=== PATIENT | female | born 1990 | race Caucasian/White ===

== ENCOUNTER 2017-08-24 17:36 | Emergency (ER) | payer BC, OTHER ==
[2017-08-24 18:19] VITALS: BP 129/88
[2017-08-24] MEDS ORDERED: KETOROLAC TROMETHAMINE INJ/PF 30 MG/1 ML SDV IM ONE (19:42)
--- NOTE | 2017-08-24 19:43 | ER Document Report ---
ED Oral Problem - General Chief Complaint: Sore Throat Stated Complaint: SORE THROAT Time Seen by Provider: 08/24/17 18:59 Mode of Arrival: Ambulatory Information source: Patient TRAVEL OUTSIDE OF THE [place] IN LAST 30 DAYS: No - HPI Patient complains to provider of: Sore throat Onset: Just prior to arrival Notes: Patient arrives with complaints of sore throat, chills, body aches, feeling hot , intermittent headache, ear pain, fatigue started a few hours ago. She denies any significant cough. She complains of mild nausea. She denies any vomiting or diarrhea. No chest pain or shortness of breath. No abdominal pain. No rash. No neck stiffness. No unilateral numbness tingling or weakness. She denies any history of immunosuppression, HIV, diabetes, cancer, , lung disease. Nothing seems to make her symptoms better or worse. She denies any other complaints at this time. - Related Data Allergies/Adverse Reactions: No Known Allergies Allergy (Unverified 08/24/17 17:44) Past Medical History - Social History Smoking Status: Unknown if Ever Smoked Family History: Reviewed & Not Pertinent Review of Systems - Review of Systems -: Yes All other systems reviewed and negative Physical Exam - Vital signs Vitals: Temp Pulse BP Pulse Ox 99.5 F 117 H 129/88 H 99 08/24/17 18:17 08/24/17 18:17 08/24/17 18:17 08/24/17 18:17 - Notes Notes: GENERAL: alert, cooperative, nontoxic, no distress. HEAD: normocephalic, atraumatic EYES: conjunctiva pink without discharge, no external redness or swelling. EARS: no external swelling, no external redness, no mastoid redness, swelling, tenderness. Ear canals are clear without swelling or drainage. TMs pearly lehman , no redness, no bulging, normal landmarks, no perforation. NOSE: atraumatic, no external swelling. clear rhinorrhea noted. MOUTH/THROAT: mucous membranes moist and pink, posterior pharynx without erythema, swelling, exudate. No trismus or drooling. NECK: soft, supple, full range of motion, no meningismus. CHEST: no distress, lungs clear and equal throughout. No wheezing, rales, rhonchi. CARDIAC: regular rate and rhythm, no murmur, normal capillary refill, normal pulses. No peripheral edema noted. BACK: full range of motion, no CVA tenderness. EXTREMITIES: full range of motion of all extremities. No redness, no swelling. NEURO: alert and oriented A&O3, no focal deficits, full range of motion of all extremities. PYSCH: appropriate mood, affect. Patient is cooperative. SKIN: pink, warm, dry, no rash. Course - Re-evaluation Re-evalutation: 08/24/17 21:04 She is nontoxic appearing with stable vitals. The patient developed sore throat fever chills and not feeling well earlier today. She denies any significant cough. Her strep is positive. She will be given a dose of Bicillin in the emergency department will be discharged home. She is instructed to follow-up if not improving the next 3-5 days, sooner for increasing pain, fever, difficulty breathing or swallowing, or for any further concerns. The patient is noted to have elevated blood pressure during today's emergency department visit. The patient was informed of this finding. The patient was instructed that this may be related to pre-hypertension and requires further evaluation with a primary care provider. The patient has no hypertensive symptoms at this time. The patient's emergency department workup and current diagnosis were explained to the patient and or family. Follow-up instructions were provided. Medications if prescribed were discussed. Instructions for when to return to the emergency department including specific worrisome symptoms were discussed with the patient and/or family. - Vital Signs Vital signs: Temp Pulse Resp BP Pulse Ox 99.5 F 117 H 129/88 H 99 08/24/17 18:17 08/24/17 18:17 08/24/17 18:17 08/24/17 18:17 Discharge - Discharge Clinical Impression: Strep pharyngitis Condition: Stable Disposition: HOME, SELF-CARE Instructions: Strep Throat ([facility]) Additional Instructions: Tylenol and Motrin as needed for pain. Drink plenty of fluids. Change her toothbrush in 48 hours. Follow-up if not improved in the next 3-5 days, sooner for increasing pain, fever, difficulty breathing or swallowing, or any further concerns. Your blood pressure was elevated during today's visit. Have this rechecked with your doctor. Forms: Elevated Blood Pressure, Smoking Cessation Education Referrals: ASIM WILDER PA-C [Primary Care Provider] - Follow up as needed
[2017-08-24] MEDS ORDERED: PENICILLIN G BENZATHINE 1.2 MILLION UNIT/2 ML DISP.SYRIN IM ONE (21:04)
== END 2017-08-24 21:25 | disposition home or self-care (01) ==
LOC: ER 17:36
DX: J02.0 Streptococcal pharyngitis (principal); M79.1 Myalgia; R51 Headache; H92.09 Otalgia, unspecified ear
CPT/HCPCS: 99283; 96372; 87880; J1885; J0561